=== PATIENT | male | born 1995 | race Asian ===

== ENCOUNTER 2019-01-30 15:57 | Emergency (ER) | payer OTHER ==
[~2019-01-30] VITALS: Ht 172.7 cm; Wt 81.6 kg
[2019-01-30 16:16] VITALS: BP 124/76
--- NOTE | 2019-01-30 16:31 | NUR ---
PT TRIAGED, SENT BACK TO LOBBY AWAITING FOR BED
--- NOTE | 2019-01-30 16:56 | NUR ---
PT TAKEN TO [facility]
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
--- NOTE | 2019-01-30 17:46 | NUR ---
Patient discharged with v/s stable. Written and verbal after care instructions given and explained. Patient verbalized understanding. Ambulatory with steady gait. All questions addressed prior to discharge. Advised to follow up with PMD in 2-3 days regarding left ear.
[2019-01-30 17:47] VITALS: BP 135/78
== END 2019-01-30 17:46 | disposition home or self-care (01) ==
LOC: MED 15:57
DX: H92.22 Otorrhagia, left ear (principal)
CPT/HCPCS: 99281